=== PATIENT | male | born 1950 | race Two or more races ===

== ENCOUNTER 2017-09-14 12:34 | Outpatient (CLI) | payer MEDICARE, MEDICAID | END 2017-09-14 23:59 | LOC: WOU 12:34 | PROVIDERS: ATTEND Surgery | DX: C44.509 Unspecified malignant neoplasm of skin of other part of trunk (principal); L98.9 Disorder of the skin and subcutaneous tissue, unspecified; Z85.820 Personal history of malignant melanoma of skin; I10 Essential (primary) hypertension; G20 Parkinson's disease | CPT/HCPCS: 11100; A6402; J3490; 88305-TC ==